=== PATIENT | male | born 1990 | race American Indian/Alaskan Native ===

== ENCOUNTER 2018-10-19 13:51 | Emergency (ER) | payer OTHER ==
[2018-10-19 13:57] VITALS: RESP 18; TEMP 97.8
[2018-10-19] MEDS ORDERED: Sodium Chloride 0.9% 1,000 ML IV STA (14:22)
--- NOTE | 2018-10-19 14:55 | ED PDOC ---
Arrival/HPI - General Chief Complaint: Abdominal Pain Time Seen by Provider: 10/19/18 13:52 Historian: Patient - History of Present Illness Narrative History of Present Illness (Text): 10/19/18 14:54 27-year-old male with no significant past medical history, presents complaining of nausea, multiple episodes of vomiting started this morning associated with sharp mid abdominal pain that started 2 hours ago. Patient reports that he ate leftovers last night and he is the only one who ate the leftovers and has the current symptoms. Otherwise he reports no fever, chills, chest pain, shortness of breath, back pain, urinary symptoms, abdominal surgeries, taking recent antibiotics, recent travel. Patient has no other complaints. Past Medical History - Psychiatric Hx Substance Use: No - Anesthesia Hx Anesthesia: No Hx Anesthesia Reactions: No Hx Malignant Hyperthermia: No Family/Social History Family/Social History: No Known Family HX Smoking Status: Former Smoker Hx Alcohol Use: Yes Frequency of alcohol use: Socially Hx Substance Use: No Allergies/Home Meds Allergies/Adverse Reactions: Allergies No Known Allergies Allergy (Verified 10/19/18 13:56) Review of Systems - Review of Systems Constitutional: absent: Fatigue, Fevers Respiratory: absent: SOB, Cough Cardiovascular: absent: Chest Pain, Palpitations Gastrointestinal: Abdominal Pain, Diarrhea, Nausea, Vomiting Genitourinary Male: absent: Dysuria, Frequency Musculoskeletal: absent: Arthralgias, Back Pain Skin: absent: Rash, Pruritis, Skin Lesions Neurological: absent: Headache, Dizziness Physical Exam Vital Signs Temp Pulse Resp BP Pulse Ox 10/19/18 13:52 97.8 F 71 18 138/70 97 Temperature: Afebrile Blood Pressure: Normal Pulse: Regular Respiratory Rate: Normal Appearance: Positive for: Well-Appearing, Non-Toxic, Comfortable Pain Distress: None Mental Status: Positive for: Alert and Oriented X 3 - Systems Exam Head: Present: Atraumatic, Normocephalic Pupils: Present: PERRL Extroacular Muscles: Present: EOMI Conjunctiva: Present: Normal Mouth: Present: Moist Mucous Membranes Neck: Present: Normal Range of Motion Respiratory/Chest: Present: Clear to Auscultation, Good Air Exchange. No: Respiratory Distress, Accessory Muscle Use Cardiovascular: Present: Regular Rate and Rhythm, Normal S1, S2. No: Murmurs Abdomen: No: Tenderness, Distention, Peritoneal Signs, Rebound, Guarding Back: Present: Normal Inspection Upper Extremity: Present: Normal Inspection. No: Cyanosis, Edema Lower Extremity: Present: Normal Inspection. No: Edema Neurological: Present: GCS=15, CN II-XII Intact, Speech Normal Skin: Present: Warm, Dry, Normal Color. No: Rashes Psychiatric: Present: Alert, Oriented x 3, Normal Insight, Normal Concentration Medical Decision Making ED Course and Treatment: 10/19/18 14:53 Plan : - IV - Labs - Pepcid / Zofran / Toradol - Reassess / disposition 10/19/18 15:45 On reevaluation, patient reports improvement of symptoms, denies any nausea or abdominal pain. On exam, patient remains awake alert and oriented 3 in no acute distress, he is eating fruit roll ups candy, he has a bag of candy by his side. Abdomen soft and nontender, repeat neuro exam shows no focal findings. Lab results and diagnosis of gastroenteritis discussed with the patient, advised brat diet and increase fluid intake. Advised to follow up with primary care physician referral provided in 1-2 days without fail. Advised to take medication as prescribed. Return to the emergency room at any time for any new or worsening symptoms. Patient states he fully agrees with and understands discharge instructions. States that he agrees with the plan and disposition. Verbalized and repeated discharge instructions and plan. I have given the patient opportunity to ask any additional questions. - Medication Orders Current Medication Orders: Sodium Chloride (Sodium Chloride 0.9%) 1,000 mls @ 1,000 mls/hr IV .Q1H STA Stop: 10/19/18 15:21 Last Admin: 10/19/18 14:35 Dose: 1,000 mls/hr eMAR Start Stop Document 10/19/18 14:35 EQ (Rec: 10/19/18 14:35 EQ [id number]) Intravenous Solution Start Date 10/19/18 Start Time 14:35 Discontinued Medications Famotidine (Pepcid) 20 mg IVP STAT STA Stop: 10/19/18 14:23 Last Admin: 10/19/18 14:35 Dose: 20 mg IVP Administration Document 10/19/18 14:35 EQ (Rec: 10/19/18 14:35 EQ [id number]) Charges for Administration # of IVP Administrations 1 Ketorolac Tromethamine (Toradol) 30 mg IVP STAT STA Stop: 10/19/18 14:23 Last Admin: 10/19/18 14:36 Dose: 30 mg MAR Pain Assessment Document 10/19/18 14:36 EQ (Rec: 10/19/18 14:36 EQ [facility] [email or web address] Pain Reassessment Is this a pain reassessment? No Sleep Is patient sleeping during reassessment? No Presence of Pain Presence of Pain Yes IVP Administration Document 10/19/18 14:36 EQ (Rec: 10/19/18 14:36 EQ [facility] [email or web address] Charges for Administration # of IVP Administrations 1 Ondansetron HCl (Zofran Inj) 4 mg IVP STAT STA Stop: 10/19/18 14:23 Last Admin: 10/19/18 14:36 Dose: 4 mg IVP Administration Document 10/19/18 14:36 EQ (Rec: 10/19/18 14:36 EQ [facility] [email or web address] Charges for Administration # of IVP Administrations 1 - PA / INJURY/SAFETY HAZARD ASSESSMENT / Resident Statement / has reviewed & agrees with the documentation as recorded. Disposition/Present on Arrival - Present on Arrival Any Indicators Present on Arrival: No History of DVT/PE: No History of Uncontrolled Diabetes: No Urinary Catheter: No History of Decub. Ulcer: No History Surgical Site Infection Following: None - Disposition Have Diagnosis and Disposition been Completed?: Yes Diagnosis: Acute gastroenteritis Disposition: HOME/ ROUTINE Disposition Time: 16:00 Patient Plan: Discharge Patient Problems: Current Active Problems Problem Status Onset Acute gastroenteritis Acute Condition: STABLE Discharge Instructions (ExitCare): Gastroenteritis (DC), Gastroenteritis (GEN) Additional Instructions: Thank you for letting us take care of you today. You were treated for acute gastroenteritis. The emergency medical care you received today was directed at your acute symptoms. If you were prescribed any medication, please fill it and take as directed. It may take several days for your symptoms to resolve. Return to the Emergency Department if your symptoms worsen, do not improve, or if you have any other problems. Please contact your doctor in 2 days for re-evaluation and follow up / or call one of the physicians/clinics you have been referred to that are listed on the Patient Visit Information form that is included in your discharge packet. Bring any paperwork you were given at discharge with you along with any medications you are taking to your follow up visit. Our treatment cannot replace ongoing medical care by a primary care provider (PCP) outside of the emergency department. [facility] your care today. Prescriptions: Dicyclomine [Bentyl] 20 mg PO QID PRN #20 tab PRN Reason: Other Ondansetron ODT [Zofran ODT] 4 mg PO DAILY PRN #20 odt PRN Reason: Nausea/Vomiting Referrals: Ricardo Ramos MD [Staff Provider] - [place] up [place] [facility] [place] - Follow up with primary Forms: Cross Current (Slovak), WORK NOTE
[2018-10-19 15:31] LABS: ALB/GLOB RATIO 1.5 (1.1-1.8); BLOOD UREA NITROGEN 13 mg/dL (7-21); GFR NON-AFRICAN AMERICAN > 60; LIPASE 34 U/L (23-300)
[2018-10-19 15:32] LABS: BASO # 0.03 K/mm3 (0.0-2.0); BASO % 0.2 % (0.0-3.0); EOS # 0.1 (0.0-0.7); EOS % 0.7 % (1.5-5.0); HEMOGLOBIN 16.2 g/dL (14.0-18.0); LYMPH # 1.2 (1.2-3.4); LYMPH % 8.7 % (22.0-35.0); MEAN CORPUSCULAR HEMOGLOBIN 29.3 pg (25.0-35.0); MEAN CORPUSCULAR HGB CONC 33.7 g/dl (31.0-37.0); MEAN PLATELET VOLUME 9.5 fl (7.0-11.0); MONO # 0.5 (0.1-0.6); MONO % 3.6 % (1.0-6.0); RBC 5.53 10^6/uL (3.5-6.1); RED CELL DISTRIBUTION WIDTH 14.1 % (11.5-14.5); WHITE BLOOD COUNT 13.9 10^3/uL (4.5-11.0)
[2018-10-19 15:34] LABS: INR 1.14; PARTIAL THROMBOPLASTIN TIME 35.1 Seconds (26.9-38.3); PROTHROMBIN TIME 12.7 SECONDS (9.4-12.5)
[2018-10-19 15:41] LABS: ALT/SGPT 29 U/L (7-56); AST/SGOT 29 U/L (17-59)
[2018-10-19 17:12] VITALS: BP 131/68; PULSE 70; O2SAT 100
== END 2018-10-19 16:41 | disposition home or self-care (01) ==
LOC: ED 13:51
DX: K52.9 Noninfective gastroenteritis and colitis, unspecified (principal); Z87.891 Personal history of nicotine dependence
CPT/HCPCS: 80053; 83690; 83735; 85025; 85610; 85730; 96374; 96375; 99283; J1885; J2405; J7030